=== PATIENT | female | born 1935 | race Caucasian/White ===

== ENCOUNTER 2024-12-25 14:46 | Emergency (ER) | payer MEDICARE, SELFPAY ==
[2024-12-25 14:54] VITALS: BP 128/58
[2024-12-25 15:42] LABS: % Basophils 0.6 % (0-2); % Eosinophils 2.7 % (0-6); % Immature Granulocytes 0.3 % (0-0.5); % Lymphocytes 19.1 % (20.5-51.1); % Monocytes 9.5 % (1.7-9.3); % Neutrophils 67.8 % (42.2-75.2); Absolute Basophils 0.1 10^3/uL (0-0.2); Absolute Eosinophils 0.2 10^3/uL (0-0.7); Absolute Lymphocytes 1.5 10^3/uL (1.2-3.4); Absolute Monocytes 0.7 10^3/uL (0.1-0.6); Absolute Neutrophils 5.2 10^3/uL (1.4-6.5); Hematocrit 38.7 % (37.0-47.0); Hemoglobin 12.5 g/dL (12.0-16.0); Mean Corp Hgb Conc. 32.3 g/dL (33.0-37.0); Mean Corpuscular Hgb 28.4 pg (27.0-31.0); Nucleated Red Blood Cells % 0 %; Platelet Count 237 10^3/uL (130-400); Red Cell Dist. Width 14.9 % (11.5-14.5); White Blood Cell Count 7.7 10^3/uL (4.8-10.8)
[2024-12-25 15:47] LABS: Urine Albumin Negative (Neg - Trace); Urine Bilirubin Negative (Negative); Urine Character Clear (Clear); Urine Color Yellow; Urine Glucose Negative (Negative); Urine Ketone Negative (Negative); Urine Leukocyte Negative (Negative); Urine Nitrite Negative (Negative); Urine Occult Blood Negative (Negative); Urine Urobilinogen Negative (Neg - 1+)
[2024-12-25 16:04] LABS: ALT (SGPT) 15 U/L (0-35); AST (SGOT) 24 U/L (14-36); Albumin 4.1 g/dl (3.5-5.0); Alkaline Phosphatase 101 U/L (38-126); Blood Urea Nitrogen 28 mg/dl (7-17); Calcium 9.6 mg/dl (8.4-10.2); Carbon Dioxide 27 mmol/L (22-30); Chloride 102 mmol/L (98-107); Glucose 150 mg/dl (70-99); Potassium 3.9 mmol/L (3.5-5.1); Sodium 138 mmol/L (135-145); Total Bilirubin 0.8 mg/dl (0.2-1.3); Total Protein 7.2 g/dl (6.3-8.2); eGFR > 60.00
[2024-12-25 16:15] LABS: Troponin I < 0.012 ng/ml
--- NOTE | 2024-12-25 16:37 | ED.GENMED ---
History of Present Illness
General
Chief Complaint: Urinary Symptoms
Source: patient and family
Exam Limitations: none
Time Seen by Provider: 12/25/24 16:36
History of Present Illness
History of Present Illness:
89yoF with a history of atrial fibrillation on Eliquis, CHF, hypertension, hyperlipidemia presenting with her daughter for evaluation of difficulty urinating. Symptoms began about a week ago. She is experiencing pain with urination as well as
incomplete voiding. She was started on a 5 day course of Macrobid. She took 7 doses without improvement and the physician at her nursing facility was planning to switch her antibiotics to Augmentin today. She was supposed to have an ultrasound
performed today but this was unable to be completed so she was sent to the ED for more expedited workup. Patient also complains of shortness of breath which has been intermittent with an associated dry cough. Her Bumex dose was increased recently
which has helped. No fevers, constipation, vomiting, chest pain.
Phy Exam
General Physical Exam
General Presentation: well appearing and no apparent distress
General Skin: warm and dry
General Habitus: normal
General Mental: alert
ENT Exam
ENT Exam: normocephalic
Cardiovascular Exam
Cardiovascular Exam: no edema and irregularly irregular
Pulmonary Exam
Pulmonary Exam: lungs clear, no respiratory distress, no rales, no crackles, no rhonchi and no wheezing
Gastrointestinal Exam
Gastrointestinal Exam: soft, non distended and other (+Suprapubic tenderness. Abdomen soft, non-distended. No rebound or guarding.)
Neurological Exam
Neurological Exam: alert
Silt Coma Scale
Eye Opening: Spontaneous
Verbal Response: Oriented
Motor Response: Obeys Commands
GCS Total Score: 15
Skin Exam
Skin Exam: normal color and warm/dry
Psychiatric Exam
Psychiatric Exam: normal mood/affect
Sepsis
Sepsis Screening
Sepsis Assessment: Sepsis Ruled Out
Sepsis Screen
Sepsis Screen: Sepsis Ruled Out
Date: 12/25/24
Time: 23:40
Course
Orders/Labs/Results
Orders:
Orders
12/25/24 15:01
ECG [Electrocardiogram (*1)] Urgent
Reason for Study: Palpitations
Other Reason for Exam: afib
EKG- Treatment ONCE
12/25/24 15:17
Complete Blood Count/With Diff Urgent
Comprehensive Metabolic Panel Urgent
Troponin I Urgent
Urinalysis Reflex To Culture Urgent
Date Specimen was Collected: 12/25/24
Time Specimen was Collected: 15:01
12/25/24 16:37
Bladder Scan- Treatment ONCE
12/25/24 16:58
CT Abd/pel Without Iv Or Oral Urgent
Comment:
Reason For Exam: lower abd pain, difficulty urinating
CR Chest - 2 Views Urgent
Comment:
Reason For Exam: SOB
12/25/24 19:00
Amoxicillin 875 mg/Clav 125 mg [Augmentin 875 mg/125 mg] 1 tablet PO NOW STA
Abnormal Lab Results
12/25/24
15:17
MCHC 32.3 L g/dL
(33.0-37.0)
RDW 14.9 H %
(11.5-14.5)
MPV 11.0 H fL
(7.4-10.4)
Absolute Monos (auto) 0.7 H 10^3/uL
(0.1-0.6)
Lymphocytes % 19.1 L %
(20.5-51.1)
Monocytes % 9.5 H %
(1.7-9.3)
BUN 28 H mg/dl
(7-17)
Glucose 150 H mg/dl
(70-99)
12/25/24 15:17
12/25/24 15:17
Vital Signs
Initial and Last Documented VS:
Initial Vital Signs
Temp Pulse Resp BP Pulse Ox
98.3 F 107 22 128/58 96
12/25/24 14:54 12/25/24 14:54 12/25/24 14:54 12/25/24 14:54 12/25/24 14:54
Last Documented Vital Signs
Temp Pulse Resp BP Pulse Ox
98.3 F 95 17 156/59 97
12/25/24 14:54 12/25/24 19:18 12/25/24 19:18 12/25/24 19:18 12/25/24 19:19
MDM/Problems Addressed
Differential Diagnosis Includes:
89yoF here with UTI symptoms x 1 week. On Macrobid without improvement. Also c/o dry cough and intermittent SOB. She is well appearing in no distress. No peripheral edema on exam and lungs CTA. Oxygen saturation 98% during exam. Differential
diagnosis includes but is not limited to: UTI, urinary retention, kidney stone, constipation, diverticulitis
Initial ED plan: Workup obtained in triage. EKG shows rate controlled afib without ischemic changes. Patient reports a history of permanent afib. Troponin WNL. UA is bland without signs of infection. White count normal. Will check CXR and CT abdomen
without contrast.
*EKG
Interpreted by ED Provider?: Yes
EKG Intrepretation Date: 12/25/24
Heart Rate: 88
Rate: normal
Rhythm: a-fib
[place]: normal axis
Interval: normal interval
QRS Pattern: normal QRS
Ischemia: no ischemia
*Critical Care Note
Total Time (30-74mins, 75-104mins- exclusive of procedures): Not Applicable
Update Note
Update Note:
Chest x-ray shows evidence of bronchitis. No pulmonary edema present. CT abdomen negative for acute findings. Bladder scan 0 cc. I was able to obtain urine culture results from her nursing facility. Urine culture from 12/18/2024 which grew out
>100,000 colonies of pansensitive E. coli. The provider at her nursing facility ordered Augmentin to start tomorrow which I think is reasonable given persistent symptoms. This should also cover for bronchitis. Patient stable for discharge back to
her nursing facility. Daughter and patient in agreement with plan.
ED Attending Note
-
Portions of this chart may have been created with voice recognition software.� Occasional wrong word or��sound alike� substitutions may have occurred due to the inherent limitations of voice recognition software.
Discharge Plan
Departure
Patient Disposition: Home (Routine Discharge)
Date of Disposition: 12/25/24
Time of Disposition: 19:00
Patient with high blood pressure during this ER visit?: Yes
Discharge Problem:
Urinary tract infection, Bronchitis
Instructions: Urinary Tract Infection, Adult (DC)
Prescriptions:
No Action
acetaminophen [Tylenol] 325 mg Tablet
650 mg PO DAILYPRN PRN (Reason: mild pain)
rabeprazole 20 mg Tablet,Delayed Release (Dr/Ec)
20 mg PO DAILY
Theragen Tablet
1 tab PO DAILY
potassium chloride 10 mEq Tablet Extended Release
10 meq PO DAILY
tramadol 50 mg Tablet
25 mg PO BIDPRN PRN (Reason: MODERATE PAINS)
bumetanide [Bumex] 1 mg Tablet
1 mg PO DAILY
nystatin 100,000 unit/gram Powder
1 applic TOPICAL BID
amoxicillin-pot clavulanate [Augmentin] 500-125 mg Tablet
1 tab PO BID
Rx Instructions:
for 7 days ending on 01/01/25
ezetimibe [Zetia] 10 mg Tablet
10 mg PO DAILY
nitrofurantoin monohyd/m-cryst [Macrobid] 100 mg Capsule
100 mg PO BID
Rx Instructions:
give until 12/27/24
nebivolol 5 mg Tablet
5 mg PO DAILY
L.acidoph,saliva-B.bif-S.therm [Acidophilus Probiotic Blend] 175 mg Capsule
1 cap PO DAILY
doxepin 3 mg Tablet
1.5 mg PO HS
Icy Hot Advanced Relief Patch 7.5 % Adhesive Patch,Medicated
1 patch TOPICAL DAILYPRN PRN (Reason: left shoulder/lower back)
Eliquis 5 mg Tablet
5 mg PO BID
d-mannose 500 mg Capsule
1,000 mg PO DAILY
Referrals:
Paige Tripp CRNP [Family Provider, General]
Activity Restrictions/Additional Instructions:
Switch antibiotics to Augmentin.
Please follow-up with your primary care provider. Return to the ER with any worsening symptoms including fevers.
Interventions
Interventions:
*Risk Screen - Suicide Last Done: 12/25/24 14:54
*General Assessment Last Done: 12/25/24 14:54
*Neglect/Abuse Screening Last Done: 12/25/24 14:54
*ED- Fall Risk Assessment Last Done: 12/25/24 16:59
*ED COVID-19 Vaccine History Last Done: 12/25/24 16:59
*Nursing Disposition Last Done: 12/25/24 19:21
ED-Female Genitourinary Assessment Last Done: 12/25/24 16:59
Discharge Date and Time
Discharge Date/Time: 12/25/24 19:22
Print Language: PALESTINIAN
[2024-12-25 16:59] VITALS: BMI 28.7
[2024-12-25 17:16] VITALS: BP 157/102
[2024-12-25 17:18] VITALS: BP 161/76
[2024-12-25] MEDS: AUGMENTIN 875 MG/125 MG 1 TABLET PO (19:16)
[2024-12-25 19:18] VITALS: BP 156/59
== END 2024-12-25 19:22 | disposition home or self-care (01) ==
LOC: EMR 14:46
PROVIDERS: Emergency Medicine; EMERGENCY PHYSICIAN Emergency Medicine; FAMILY PHYSICIAN Nurse Practitioner Gerontology
DX: N39.0 Urinary tract infection, site not specified (principal); J40 Bronchitis, not specified as acute or chronic; I11.0 Hypertensive heart disease with heart failure; I50.9 Heart failure, unspecified; E78.5 Hyperlipidemia, unspecified; I48.91 Unspecified atrial fibrillation; Z79.01 Long term (current) use of anticoagulants
CPT/HCPCS: 99285; 71046; 74176; 80053; 81003; 84484; 85025; 93005

== ENCOUNTER 2025-01-12 20:06 | Observation (INO) | payer MEDICARE, SELFPAY ==
[2025-01-12] VITALS (10 sets, daily range): BP systolic 105–145; BP diastolic 48–101; BMI 29.3; BMI 29.5
[2025-01-12 14:54] LABS: % Basophils 0.6 % (0-2); % Eosinophils 2.6 % (0-6); % Immature Granulocytes 0.3 % (0-0.5); % Lymphocytes 21.3 % (20.5-51.1); % Neutrophils 65.2 % (42.2-75.2); Absolute Eosinophils 0.2 10^3/uL (0-0.7); Absolute Lymphocytes 1.5 10^3/uL (1.2-3.4); Absolute Monocytes 0.7 10^3/uL (0.1-0.6); Absolute Neutrophils 4.7 10^3/uL (1.4-6.5); Hematocrit 39.9 % (37.0-47.0); Hemoglobin 13.1 g/dL (12.0-16.0); Mean Corp Hgb Conc. 32.8 g/dL (33.0-37.0); Mean Corpuscular Hgb 28.2 pg (27.0-31.0); Mean Platelet Volume 10.5 fL (7.4-10.4); Nucleated Red Blood Cells % 0 %; Platelet Count 199 10^3/uL (130-400); Red Blood Cell Count 4.64 10^6/uL (4.20-5.40); Red Cell Dist. Width 15.8 % (11.5-14.5); White Blood Cell Count 7.2 10^3/uL (4.8-10.8)
[2025-01-12 15:00] LABS: ALT (SGPT) 23 U/L (0-35); AST (SGOT) 37 U/L (14-36); Albumin 4.5 g/dl (3.5-5.0); Alkaline Phosphatase 94 U/L (38-126); Blood Urea Nitrogen 39 mg/dl (7-17); Calcium 9.9 mg/dl (8.4-10.2); Carbon Dioxide 29 mmol/L (22-30); Chloride 101 mmol/L (98-107); Glucose 107 mg/dl (70-99); Potassium 3.9 mmol/L (3.5-5.1); Sodium 138 mmol/L (135-145); Total Protein 7.8 g/dl (6.3-8.2); eGFR 48.03
[2025-01-12 15:09] LABS: NT-proBNP 2740 pg/ml
--- NOTE | 2025-01-12 17:15 | ED.GENMED ---
History of Present Illness
General
Chief Complaint: Heart Rate Problem
Time Seen by Provider: 01/12/25 17:15
History of Present Illness
History of Present Illness:
TIME OF INITIAL EVALUATION
- 5:15 PM
REVIEW OF OLD RECORDS
- Patient has a history of A-fib, CHF. She was seen in the emergency department diagnosed with bronchitis earlier this month. At that time chest x-ray was suggestive of bronchiectasis/bronchitis.
CHIEF COMPLAINT(S)
Anxiety and panic attacks.
HISTORY OF PRESENT ILLNESS
The patient is an 89-year-old female with a history of atrial fibrillation and congestive heart failure presenting with exacerbation of anxiety and panic attacks for the past 10 days. Prior to this period, anxiety was infrequent and manageable
without medication. The patient reports experiencing severe panic attacks that prevent her from sleeping. She states that her anxiety has been constant and is associated with sensations of being unable to breathe, although her oxygen saturation is
reportedly excellent at 90%. The patients heart rate is slightly elevated but not of major concern per recent evaluation.
She was here earlier this month with similar complaints, and it was thought to be related to a suspected but unconfirmed lung infection and bronchitis, which were responsive to treatment. Diagnostic imaging and lab work conducted previously showed
results compatible with her history of atrial fibrillation and congestive heart failure. The patient has used tramadol for neuropathy-related pain.
SOCIAL DETERMINANTS AFFECTING HEALTH
According to family, the patient seeks a rapid improvement in her condition and lacks understanding that anxiety medications may take weeks to show effects.
PHYSICAL EXAM
- General: Well appearing in no distress
- HEENT: Moist oral mucosa
- Cardiovascular: No murmurs, tachycardic heart rate, irregular rhythm, No chest wall tenderness
- Pulmonary: No respiratory distress, breath sounds are clear and equal
- Abdomen: Soft with no peritoneal signs, no tenderness
- Neurologic: Excellent strength all extremities, no coordination deficits
- Psychiatric: Appears very anxious and upset, crying at times
- Extremities: Nontender, no edema, moves all extremities equally
- Skin: No rash, no lesions
PLAN
The plan includes administering a benzodiazepine to address severe anxiety and break the cycle of panic attacks. Consultation with psychiatry will be considered for further management.
DIFFERENTIAL DIAGNOSIS
The Differential Diagnosis includes, in no particular order and is not limited to:
1. Generalized Anxiety Disorder
2. Panic Disorder
3. Medication Overuse/Withdrawal
4. Atrial Fibrillation with Rapid Ventricular Response
5. Congestive Heart Failure Exacerbation
6. Pulmonary Embolism
7. Chronic Obstructive Pulmonary Disease Exacerbation
8. Pneumonia
9. Hyperthyroidism
10. Electrolyte Imbalance
RADIOLOGY
-
EKG
- A-fib 106, left axis deviation
LABS
- CBC normal and unchanged from earlier this month, mild renal insufficiency noted, BNP 2740
UPDATE
-I sent this message to on-call psychiatry, Dr. Cartwright: 'H/o some anxiety in past, now markedly worse past 10d. Med list from [facility] (assisted living) indicates Buspar 5mg 1/2 pill bid started 01/05 (which she stopped taking due to ineffectiveness)
and Lexapro was started following day, but she cannot confirm she is taking this. These appear to have been started by PMD at [facility]. Will give a one time dose of benzo IV now due to severe anxiety / crying. Can't sleep.' And asked for any
further recommendations
-Karoline from crisis briefly evaluated the patient and feels that she has nothing more to offer
SUMMARY OF ENCOUNTER
The patient, an 89-year-old female, presented to the emergency department with exacerbation of anxiety and panic attacks, affecting her sleep. The patients mental health concerns are ongoing, and she reported that despite previous prescriptions of
medication like Buspirone (Buspar) and possibly others like Citalopram (Lexapro), there has been no significant improvement in her condition. The patient expressed reluctance to stay overnight unless there was a guaranteed solution for her anxiety.
Psychiatric consultation was considered, but immediate availability was uncertain. It was noted that the emergency department had a high patient load, impacting room availability and considerations for overnight observation.
DISPOSITION
The decision to potentially discharge the patient or keep her for overnight observation with administration of a dose of Buspirone was debated. Due to a lack of guaranteed psychiatric evaluation by the next day and the patients residence in an
assisted living facility, the decision leaned towards discharging the patient to her facility with her medication continued and follow-up considerations.
MEDICATION RECONCILIATION
Buspirone (Buspar) was discussed for administration in the ED to manage the patient�s anxiety symptoms. The patient was previously on this medication, and resumption of its use was considered.
PATIENT EDUCATION AND COUNSELING
The patient was counseled about the limitations and timelines of psychiatric medication efficacy, and the uncertainty of immediate improvement with medication restart was emphasized. The patient was also informed about the lack of immediate
psychiatric consultation and the possibility of continuing care at her assisted living facility.
PLAN
The plan included observing the patient overnight with administration of Buspirone to assess immediate improvement, with discharge being a viable option should she prefer returning to her assisted living facility.
MEDICAL DECISION MAKING
Chronic conditions affecting care include anxiety and panic disorder, as well as a history of atrial fibrillation and congestive heart failure. There was consideration of psychiatric medication efficacy and logistics�limited psychiatric support in
the ED due to patient volume and the nature of her assisted living arrangement.
MANAGEMENT OF THE PATIENTS CARE WAS DISCUSSED WITH
Brief interaction with psychiatry services was noted, though an immediate consult was unavailable. Discussions also included the emergency department team and potentially the patient�s assisted living staff regarding her ongoing care needs.
On reassessment after Ativan was given, she feels no improvement. She does not feel comfortable back to assisted living at this time as anxiety is still debilitating and she is still intermittently crying at times. Review of the monitor shows that
she is in A-fib with rapid response. Placed on Cardizem bolus and drip.
Phy Exam
Physical Exam
Physical Exam:
See HPI
Course
Orders/Labs/Results
Orders:
Orders
01/12/25 14:06
Electrocardiogram (*1) Urgent
Reason for Study: Tachycardia
EKG- Treatment ONCE
01/12/25 14:39
Complete Blood Count/With Diff Urgent
Comprehensive Metabolic Panel Urgent
Pro-BNP [NT-proBNP] Urgent
01/12/25 17:27
Lorazepam [Ativan] 0.5 mg IV NOW STA
01/12/25 18:30
Diltiazem 125 mg/125 ml Nss [Cardizem] 125 mg in 125 ml IV PER PROTOCOL
Initial dose in mg/hr, then titrate:: 5
Titrate to keep:: Heart rate 80-100 bpm
Titrate by mg/hr:: 5 mg/hr
Frequency of titrations (minutes):: 15
Maximum dose in mg/hr:: 15
01/12/25 19:07
Consult Psychiatry [PSYCHIATRY CONSULT] Urgent
Consulting Provider: Tram Cooper
Was physician already notified: Yes
01/12/25 19:15
Buspirone [Buspar] 5 mg PO NOW STA
Abnormal Lab Results
01/12/25
14:39
MCHC 32.8 L g/dL
(33.0-37.0)
RDW 15.8 H %
(11.5-14.5)
MPV 10.5 H fL
(7.4-10.4)
Absolute Monos (auto) 0.7 H 10^3/uL
(0.1-0.6)
Monocytes % 10.0 H %
(1.7-9.3)
BUN 39 H mg/dl
(7-17)
Creatinine 1.1 H mg/dL
(0.6-1.0)
Glucose 107 H mg/dl
(70-99)
AST 37 H U/L
(14-36)
01/12/25 14:39
01/12/25 14:39
Vital Signs
Initial and Last Documented VS:
Initial Vital Signs
Temp Pulse Resp BP Pulse Ox
36.4 C 129 22 145/80 97
01/12/25 14:28 01/12/25 14:28 01/12/25 14:28 01/12/25 14:28 01/12/25 14:28
Last Documented Vital Signs
Temp Pulse Resp BP Pulse Ox
36.4 C 112 7 129/75 99
01/12/25 14:28 01/12/25 17:15 01/12/25 17:15 01/12/25 17:11 01/12/25 17:17
*Pulse Oximetry
SaO2: 99
Oxygen Mode of Delivery: Room air
Patient hypoxic: no
*Critical Care Note
Total Time (30-74mins, 75-104mins- exclusive of procedures): Not Applicable
ED Attending Note
-
Portions of this chart may have been created with voice recognition software.� Occasional wrong word or��sound alike� substitutions may have occurred due to the inherent limitations of voice recognition software.
Discharge Plan
Departure
Prescriptions:
No Action
acetaminophen [Tylenol] 325 mg Tablet
650 mg PO DAILYPRN PRN (Reason: mild pain)
rabeprazole 20 mg Tablet,Delayed Release (Dr/Ec)
20 mg PO DAILY
Theragen Tablet
1 tab PO DAILY
potassium chloride 10 mEq Tablet Extended Release
10 meq PO DAILY
tramadol 50 mg Tablet
25 mg PO BIDPRN PRN (Reason: MODERATE PAINS)
bumetanide [Bumex] 1 mg Tablet
1 mg PO DAILY
nystatin 100,000 unit/gram Powder
1 applic TOPICAL BID
amoxicillin-pot clavulanate [Augmentin] 500-125 mg Tablet
1 tab PO BID
Rx Instructions:
for 7 days ending on 01/01/25
ezetimibe [Zetia] 10 mg Tablet
10 mg PO DAILY
nitrofurantoin monohyd/m-cryst [Macrobid] 100 mg Capsule
100 mg PO BID
Rx Instructions:
give until 12/27/24
nebivolol 5 mg Tablet
5 mg PO DAILY
L.acidoph,saliva-B.bif-S.therm [Acidophilus Probiotic Blend] 175 mg Capsule
1 cap PO DAILY
doxepin 3 mg Tablet
1.5 mg PO HS
Icy Hot Advanced Relief Patch 7.5 % Adhesive Patch,Medicated
1 patch TOPICAL DAILYPRN PRN (Reason: left shoulder/lower back)
Eliquis 5 mg Tablet
5 mg PO BID
d-mannose 500 mg Capsule
1,000 mg PO DAILY
Referrals:
Paige Tripp CRNP [Family Provider, General]
Interventions
Interventions:
*Risk Screen - Suicide Last Done: 01/12/25 14:28
*General Assessment Last Done: 01/12/25 14:28
*Neglect/Abuse Screening Last Done: 01/12/25 14:28
*ED- Fall Risk Assessment Last Done: 01/12/25 14:28
*ED COVID-19 Vaccine History Last Done: 01/12/25 14:28
ED- Cardiac Assessment Last Done: 01/12/25 17:23
ED- Pulmonary Assessment Last Done: 01/12/25 17:23
Discharge Date and Time
Print Language: GABONESE
[2025-01-12] MEDS: ATIVAN 0.5 MG IV (17:37)
--- NOTE | 2025-01-12 19:10 | HPS.HSE ---
Family Physician
-
Family Physician: ROSAMARIA Coleman
Chief Complaint
-
Palpitations and anxiety
History of Present Illness
89-year-old female with past medical history significant for congestive heart failure, paroxysmal atrial fibrillation on anticoagulation, hypertension, hyperlipidemia, presenting to the emergency department with worsening anxiety and palpitations.
Patient appears to have ongoing mental health issue of anxiety. She is on buspirone. Despite this she has worsening anxiety. She reports increasing severe panic attacks keeping her from sleeping. She also has a sensation of being unable to
breathe although oxygen saturation is excellent.
Patient's spouse was recently . She also recently moved from [place] to an assisted living in [place].
Since the move the patient has been having nightly panic episodes. She states that she feels short of breath and she could not sleep at home. She has leg shaking. She reports that she only had palpitations today not usually. But she reports
intermittent lightheadedness frequently.
She kept saying that she could not ' live like this anymore' in relation to her panic episodes. Patient denies prior history of CVA panic episode or depression and stated that she is occasionally an anxiety in the past that resolved.
In the emergency department blood pressure was low 129/75 she was afebrile, she was tachycardic to the 120s.
CBC was unremarkable, ECG shows atrial fibrillation with RVR at a rate of 129, BNP was 2700. Electrolytes were normal. BUN/creatinine were slightly increased from prior at 39 and 1.1.
Medical History
Past Medical History
Past Medical History: Reports Arrhythmia (Atrial fibrillation), CHF, GERD and HTN
Past Surgical History: Reports Other
Social History
Tobacco: Non-smoker
Alcohol: None
Drug: None
Family History
Family History: Not pertinent
Allergies / Home Medications
Allergies reflects when Allergies were last updated in [facility].
Home Medications with original date entered in [facility]
Allergy/Medication List:
Allergies
Allergy/AdvReac Type Severity Reaction Status Date / Time
Iodinated Contrast Media Allergy Intermediate Hives Verified 01/12/25 14:27
Sulfa (Sulfonamide Allergy Mild Hives Verified 01/12/25 14:27
Antibiotics)
sulfamethoxazole (From Allergy Mild Hives Verified 01/12/25 14:27
Bactrim)
trimethoprim (From Bactrim) Allergy Mild Hives Verified 01/12/25 14:27
phenazopyridine (From Allergy Unknown Verified 01/12/25 14:27
Pyridium)
Home Medications
L.acidophil,salivari-Bifido bifidum-Strep thermoph 175 mg capsule (Acidophilus Probiotic Blend) 1 cap PO DAILY 12/25/24
acetaminophen 325 mg tablet (Tylenol) 650 mg PO DAILYPRN PRN mild pain 12/25/24
amoxicillin 500 mg-potassium clavulanate 125 mg tablet (Augmentin) 1 tab PO BID 12/25/24
apixaban 5 mg tablet (Eliquis) 5 mg PO BID 12/25/24
bumetanide 1 mg tablet 1 mg PO DAILY 12/25/24
d-mannose 500 mg capsule 1,000 mg PO DAILY 12/25/24
doxepin 3 mg tablet 1.5 mg PO HS 12/25/24
ezetimibe 10 mg tablet (Zetia) 10 mg PO DAILY 12/25/24
menthol 7.5 % topical patch 1 patch topical DAILYPRN PRN left shoulder/lower back 12/25/24
nebivolol 5 mg tablet 5 mg PO DAILY 12/25/24
nitrofurantoin monohydrate/macrocrystals 100 mg capsule (Macrobid) 100 mg PO BID 12/25/24
nystatin 100,000 unit/gram topical powder 1 applic topical BID under b/l breast 12/25/24
potassium chloride 10 mEq tablet,extended release 10 meq PO DAILY 12/25/24
rabeprazole 20 mg tablet,delayed release 20 mg PO DAILY 12/25/24
therapeutic multivitamin 1 tab PO DAILY 12/25/24
tramadol 50 mg tablet 25 mg PO BIDPRN PRN MODERATE PAINS 12/25/24
Review of Systems
-
History Source: Patient and Family
Constitutional: Reports No Symptoms
EENT: Reports No Symptoms
Respiratory: Reports No Symptoms
Cardiac: Reports Palpitations
Abdomen/GI: Reports No Symptoms
: Reports No Symptoms
Musculoskeletal: Reports No Symptoms
Skin: Reports No Symptoms
Neurological: Reports No Symptoms
Endocrine: Reports No Symptoms
Hematologic/Lymphatic: Reports No Symptoms
Psych: Reports Anxiety
Physical Exam
Vital Signs
Vital Signs
Temp Pulse Resp BP Pulse Ox
97.5 F 112 7 129/75 99
01/12/25 14:28 01/12/25 17:15 01/12/25 17:15 01/12/25 17:11 01/12/25 17:17
Physical Exam
General: Well Developed, Well Nourished and No Apparent Distress
HEENT: NormoCephalic, Moist mucous membranes and Atraumatic
Respiratory: Clear
Cardiac: S1/S2, Irregular Rhythm and Tachycardia; No Murmur or Rub
GI: Soft, Non Tender, Non Distended and Normal Bowel Sounds; No Organomegaly
Rectal: Deferred by Provider
Musculoskeletal: No Clubbing, No Cyanosis, Edema, Left Lower Extremity (Trace) and Edema, Right Lower Extremity (Trace)
Skin: No Rash
Neuro: Nonfocal/grossly intact
Laboratory Results
-
01/12/25 14:39
01/12/25 14:39
Laboratory Results
Total Bilirubin 1.0 mg/dl (0.2-1.3) 01/12/25 14:39
AST 37 U/L (14-36) H 01/12/25 14:39
ALT 23 U/L (0-35) 01/12/25 14:39
Alkaline Phosphatase 94 U/L (38-126) 01/12/25 14:39
Data Reviewed
-
Medical Tests (Nuc Med, Echo, EKG etc): Image Personally Visualized and interpreted
Lab Data: Labs Reviewed by me
Old Records: Reviewed
Impression/Plan
-
IMPRESSION:
This is a generally well-appearing 89-year-old with past medical history of atrial fibrillation on anticoagulation, hypertension, GERD and recent diagnosis of anxiety who presents to the emergency department with anxiety and palpitations and was
found to be in rapid atrial fibrillation. Patient is generally seeking help for anxiety and feels that she can return home without assurance of improvement in symptoms she states she could not tolerate and other nights with or panic episodes. She
has been given lorazepam in the emergency department and said that this made felt 'loopy'. She is getting oral buspirone 5mg now. On diltiazem
PLAN:
1. Atrial fibrillation -patient in rapid afebrile with a rate of 120s on arrival, now around 100 on diltiazem drip
- Admit to telemetry
- Continue diltiazem drip at a fixed rate titrate up physician
- Continue patient's Eliquis 5 mg twice daily
� Continue the Nebivolol
-Keep K and mag greater than 4 2 respectively
� Known A-fib this is not new so no indication for repeat echo at this time
� Patient has not established with cardiology here in [place] but has 1 from [place]. No indication for elevated cardiology consult at this time as patient's known A-fib
-Check TSH
- Continue Bumex 1 mg daily
2 -severe panic episode/anxiety generalized anxiety disorder
-Continue BuSpar 5 mg twice daily
-Continue escitalopram 5 mg daily
-Psych has been consulted in the ED
DVT PPX - on apixaban
Code Status - DNR
[2025-01-12] MEDS: CARDIZEM 125 IV (19:17)
--- NOTE | 2025-01-12 19:21 | EDRN ---
Report received, introduced myself to patient, myself and previous nurse helped patient on to bedside commode and the provider back in to speak with the son about admission, Admitting doctor at bedside now working on admission.
[2025-01-12] MEDS: BUSPAR 5 MG PO (20:09)
--- NOTE | 2025-01-12 20:17 | EDRN ---
Joe placed and patient asking for food provided with a turkey sandwich
[2025-01-12] MEDS: ELIQUIS 5 MG PO (22:21)
[2025-01-12] MEDS: ATIVAN 0.5 MG PO (22:21)
[2025-01-12] MEDS: DESENEX/MITRAZOL/ZEASORB 1 APPLIC TOPICAL (22:22)
[2025-01-13] VITALS (8 sets, daily range): BP systolic 112–135; BP diastolic 43–72; PULSE 76–78; O2SAT 97; BMI 29.5
[2025-01-13] MEDS: ULTRAM 25 MG PO ×3 (03:49→21:36)
[2025-01-13 06:15] LABS: Blood Urea Nitrogen 31 mg/dl (7-17); Calcium 9.4 mg/dl (8.4-10.2); Carbon Dioxide 26 mmol/L (22-30); Chloride 105 mmol/L (98-107); Estimated Creatinine Clearance 33 ml/min; Glucose 92 mg/dl (70-99); HDL Cholesterol 41 mg/dl; LDL Cholesterol, Calculated 83 mg/dl; Magnesium 2.1 mg/dl (1.6-2.3); Potassium 3.3 mmol/L (3.5-5.1); Sodium 141 mmol/L (135-145); Total Cholesterol 136 mg/dl (50-199); Triglyceride 63 mg/dl (10-149); Very Low Density Lipoprotein 12 mg/dl (0-30); eGFR 53.85
[2025-01-13 06:43] LABS: TSH 2.51 uIU/ml (0.47-4.68)
--- NOTE | 2025-01-13 07:24 | PTCARENOTE ---
Patient arrived on unit @2119 via stretcher from ED, pulled over to bed with assist x3. Patient AAOx3, anxious and tearful, able to make needs known. Skin assessment completed, med rec completed, oriented to unit, call mccann in reach. Patient arrived
on unit with cardizem gtt running @5mg/hr. Prn ativan given as ordered for anxiety.
BAND BIAS MACHINE OPERATOR made aware @0526 patient is still in Afib but HR dropped to 40s more than once but did not sustain. Patient is asymptomatic and HR on tele monitor running between 60s to 90s. New order received for cardizem gtt rate 2.5mg/hr.
BAND BIAS MACHINE OPERATOR made aware @0645 patient's HR is still occasionally going into the 40s with pauses, asymptomatic. BAND BIAS MACHINE OPERATOR order to hold cardizem gtt. Cardizem gtt placed on hold as ordered.
[2025-01-13] MEDS: BYSTOLIC 5 MG PO (08:53)
[2025-01-13] MEDS: ELIQUIS 5 MG PO ×2 (08:54→20:06)
[2025-01-13] MEDS: BUMEX 1 MG PO (08:54)
[2025-01-13] MEDS: PROTONIX 40 MG PO (08:54)
[2025-01-13] MEDS: KCL 10 MEQ PO (08:55)
[2025-01-13] MEDS: ZETIA 10 MG PO (08:55)
[2025-01-13] MEDS: ATIVAN 0.5 MG PO ×2 (09:09→16:49)
[2025-01-13] MEDS: DESENEX/MITRAZOL/ZEASORB 1 APPLIC TOPICAL ×2 (09:20→20:06)
--- NOTE | 2025-01-13 10:57 | W.PN.HOSP.TC ---
Today's Communication/Plan
-
Replete potassium
Psychiatry consult
PT/OT
Possible discharge
Assessment / Plan
Assessment / Plan
Gen-AAOx3, NAD, flat affect
HEENT-NC, AT, anicteric, clear oral mm
Neck-supple
CV-reg, no M, +S1/S2
Lungs-clear B/L
Abd-soft, NT, ND
Ext-no edema
Musculoskeletal-no cyanosis, clubbing
Skin-warm and dry
Neuro-grossly non-focal
Psych-calm, cooperative
Rapid atrial fibrillation -improved. Denies further palpitations. Continue beta-raymundo, Eliquis. Off Cardizem drip.
TSH normal.
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 She moved to [place] 6 weeks ago.
Depression/anxiety disorder -this is the primary reason for her admission. Consult psychiatry. Outpatient psychiatry follow-up.
She lost her 3 months ago.
Hypokalemia -replete orally. Magnesium was normal.
Ambulatory dysfunction -uses a walker at baseline. Consult PT/OT.
Obesity due to excess calories
DNR
Dispo -potential discharge back to [facility] later today if stable. Discussed with nursing and psychiatry.
Anticipated Discharge: Today
Subjective/Interval History
-
Date of Service: January 13, 2025
Patient seen and examined. Complaining of back pain due to poor sleep.
Objective Data
-
Labs:
Laboratory Results
01/13/25
05:23
Sodium 141
Potassium 3.3 L
Chloride 105
Carbon Dioxide 26
BUN 31 H
Creatinine 1.0
Glucose 92
Calcium 9.4
Vital Signs:
Vital Signs
Temp Pulse Resp BP Pulse Ox
98.1 F 81 16 130/43 96
01/13/25 07:30 01/13/25 08:53 01/13/25 07:30 01/13/25 08:53 01/13/25 07:30
I&O
01/12/25 01/13/25 01/14/25
06:59 06:59 06:59
Intake Total 120 / 120
Output Total 100 / 100
Balance
Review of Systems
-
History Source: Patient
All other systems: Reviewed and negative
--- NOTE | 2025-01-13 11:16 | CON.MD ---
Consultation - Medical
-
patient seen chart reviewed. this consult was done today january 13 2025. the patient is an 89 year old woman admitted for anxiety and panic of ten days duration. while the record says this is a recent phenomenon she told me she has struggled since
her h of 68 years in september and she had to sell her home and move into [place]. she admits she is also depressed but the anxiety is overwhelming and those meds that 'take two weeks to work' have not helped her. she took buspar admittedly a
very small dose 2.5 mg bid but is convinced it was not helpful. also took lexapro 5 mg daily. she cannot sleep .says no sleep in the past few days. appetite is poor states ten lb weight loss. she does not enjoy anything. she is not suicidal. no
psychotic sx noted. patient's oxygenation is good . she has intermittently had high heart rate in the 120's and a fib w rvr has been noted
past psych hx prior to this recent episode never rx for psych has had moments of anx and dep in her life but coped
medical hx a fib chf hx uti hx pe copd gerd htn hx pneumonia chronic pain hyperthryoid noted in chart
fh denied
substance abuse denied
social resides at [facility] recently three kids five grands and four greats
mse alert ox3 cooperative appearance is frail and depressed affect constricted denies si no psychosis aver intell insight judgment ok
dx unspecified depression unspec anxiety
plan patient does appear to be depressed as well as anxious. it is also possible that afib even thought rate is below 100 right now is contributing. would use ativan standing for a week or more as antidep takes effect. discussed with patient side
effects risks vs collette of bzp which have falls sedation mentation as possible adverse effect. also remeron 7.5 mg q hs which should help w depression dec appetite sleep anxiety etc. need to inc to 15 in a week or so if no ill effects. check b12
folate vit d and tsh reflex to t4 offer support. psych to follow
[2025-01-13] MEDS: KCL 40 MEQ PO (11:26)
[2025-01-13] MEDS: REMERON 7.5 MG PO (21:24)
[2025-01-14] MEDS: ATIVAN 0.5 MG PO ×2 (03:58→08:30)
[2025-01-14 07:30] VITALS: BP 151/85
--- NOTE | 2025-01-14 07:49 | VATNOTE ---
Pt's PIV site appears to have some blood underneath. Pt currently sleeping. Will return to change PIV dressing.
[2025-01-14] MEDS: BUMEX 1 MG PO (08:24)
[2025-01-14] MEDS: BYSTOLIC 5 MG PO (08:24)
[2025-01-14] MEDS: ELIQUIS 5 MG PO ×2 (08:25→20:54)
[2025-01-14] MEDS: PROTONIX 40 MG PO (08:25)
[2025-01-14] MEDS: ZETIA 10 MG PO (08:25)
[2025-01-14] MEDS: KCL 10 MEQ PO (08:25)
[2025-01-14] MEDS: ULTRAM 25 MG PO ×2 (08:31→21:02)
[2025-01-14] MEDS: DESENEX/MITRAZOL/ZEASORB 1 APPLIC TOPICAL ×2 (08:43→20:57)
--- NOTE | 2025-01-14 08:53 | CM ---
Addendum entered by Gabbie Jay 01/14/25 16:25:
Pt does not qualify for the [facility] waiver. Therapy recommending SNF, however due to OBS status, pt does not qualify for SNF. [facility] spoke with Anne-Marie Garcia who advised that April lives at [place], not the independent living at [facility]. CM
contacted Emiliana Herculesunt at [place] and sent records for review.
Plan: F/U in am to determine if pt's needs can be met at [place].
Original Note:
Recently moved to [facility]. At times pt receives assistance with meals and ADLs. SNF recommended by PT/OT; currently OBS status and min (A) for transfers and ambulation with RW. TT to [facility] to determine if pt qualifies for the [facility] waiver.
--- NOTE | 2025-01-14 11:08 | W.PN.UPDATE ---
Update Note
Progress Note Update
patient seen chart reviewed. discussed with nursing. mrs mcclain appeared very tired today. she had received a prn of ativan in the night and this am. she is very anxious despite clearly being tired. she did not sleep well last night. she is
trying to keep busy doing soduku and word searches. i suggested that if she were tired she could certainly take a nap . reiterated to her that antidepressants take some time to work and though we use ativan as a temporizing measure it can be
sedating. have decreased ativan to o.25 mg considered inc in hs remeron but only just started it and it too can cause am sedation. will follow
[2025-01-14 11:45] VITALS: BP 142/75
[2025-01-14 12:44] LABS: Blood Urea Nitrogen 26 mg/dl (7-17); Calcium 9.6 mg/dl (8.4-10.2); Carbon Dioxide 30 mmol/L (22-30); Chloride 104 mmol/L (98-107); Estimated Creatinine Clearance 33 ml/min; Glucose 129 mg/dl (70-99); Potassium 3.7 mmol/L (3.5-5.1); Sodium 140 mmol/L (135-145); eGFR 53.85
--- NOTE | 2025-01-14 13:44 | W.PN.HOSP.TC ---
Today's Communication/Plan
-
Increase KCl dose
Discharge planning
Assessment / Plan
Assessment / Plan
Gen-AAOx3, NAD, flat affect
HEENT-NC, AT, anicteric, clear oral mm
Neck-supple
CV-reg, no M, +S1/S2
Lungs-clear B/L
Abd-soft, NT, ND
Ext-no edema
Musculoskeletal-no cyanosis, clubbing
Skin-warm and dry
Neuro-grossly non-focal
Psych-calm, cooperative
Rapid atrial fibrillation -improved. Denies further palpitations. Continue Nebivolol, Eliquis.
TSH normal.
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 She moved to [place] 6 weeks ago.
Depression/anxiety disorder -this is the primary reason for her admission. Psychiatry service following. Continue Remeron and lorazepam per psychiatry. Outpatient psychiatry follow-up.
She lost her 3 months ago.
Hypokalemia -improved. Will increase standing dose of potassium to 20meq daily.
Ambulatory dysfunction -uses a walker at baseline. Continue PT/OT.
Obesity due to excess calories
DNR
Dispo -stable for discharge to SNF. She resides in [facility] independent living. Updated case management.
Anticipated Discharge: Within 24 hours
Subjective/Interval History
-
Date of Service: January 14, 2025
Patient seen and examined, sleeping when I walked in. When awakened she appears very depressed and states she does not feel well but cannot expand on that.
Objective Data
-
Labs:
Laboratory Results
01/14/25
12:11
Sodium 140
Potassium 3.7
Chloride 104
Carbon Dioxide 30
BUN 26 H
Creatinine 1.0
Glucose 129 H
Calcium 9.6
Vital Signs:
Vital Signs
Temp Pulse Resp BP Pulse Ox
97.8 F 99 18 142/75 97
01/14/25 11:45 01/14/25 11:45 01/14/25 11:45 01/14/25 11:45 01/14/25 11:45
I&O
01/13/25 01/14/25 01/15/25
06:59 06:59 06:59
Intake Total 120 / 120 880 / 880
Output Total 100 / 100
Balance 880 / 880
Review of Systems
-
History Source: Patient
All other systems: Reviewed and negative
[2025-01-14 14:15] LABS: Vitamin D, 25-OH*** 64.4 ng/mL (30-80)
[2025-01-14] MEDS: KCL 20 MEQ PO (14:15)
[2025-01-14 14:28] LABS: TSH Reflex To Free T4 2.36 uIU/ml (0.47-4.68)
[2025-01-14 15:04] LABS: Folate > 20.0 ng/ml (2.76-20); Vitamin B12 889 pg/ml (239-931)
[2025-01-14 15:45] VITALS: BP 133/58
[2025-01-14] MEDS: ATIVAN 0.25 MG PO ×2 (16:11→23:24)
[2025-01-14 19:17] VITALS: BP 140/60
[2025-01-14] MEDS: REMERON 7.5 MG PO (20:54)
[2025-01-14 23:46] VITALS: BP 140/60
[2025-01-15 07:25] VITALS: BP 133/65
[2025-01-15] MEDS: ZETIA 10 MG PO (07:55)
[2025-01-15] MEDS: KCL 20 MEQ PO (07:55)
[2025-01-15] MEDS: ELIQUIS 5 MG PO (07:55)
[2025-01-15] MEDS: ATIVAN 0.25 MG PO ×2 (07:55→15:51)
[2025-01-15] MEDS: PROTONIX 40 MG PO (07:55)
[2025-01-15] MEDS: BUMEX 1 MG PO (07:55)
[2025-01-15] MEDS: BYSTOLIC 5 MG PO (07:56)
[2025-01-15] MEDS: DESENEX/MITRAZOL/ZEASORB 1 APPLIC TOPICAL (07:56)
[2025-01-15 10:58] VITALS: BMI 29.2
--- NOTE | 2025-01-15 11:15 | W.PN.UPDATE ---
Update Note
Progress Note Update
patient seen chart reviewed. spoke with nursing. patient remains very depressed and anxious. when you ask her what she is anxious about she speaks of her 's and the changes she has been forced to make in her life. eg moving to [place]. she admits [facility] has ' a lot of amenities' but she mourns her own life. she also acknowledges that her kids try to help but.....would continue w meds as they are it is still too soon for full effect of remeron and she is on a small dose
which increased to day to 15 mg. b12 folate vit d tsh all ok will follow.
[2025-01-15 11:25] VITALS: BP 121/60
--- NOTE | 2025-01-15 12:20 | W.PN.HOSP.TC ---
Today's Communication/Plan
-
Discharge planning
Assessment / Plan
Assessment / Plan
Gen-AAOx3, NAD, flat affect
HEENT-NC, AT, anicteric, clear oral mm
Neck-supple
CV-reg, no M, +S1/S2
Lungs-clear B/L
Abd-soft, NT, ND
Ext-no edema
Musculoskeletal-no cyanosis, clubbing
Skin-warm and dry
Neuro-grossly non-focal
Psych-calm, cooperative
Rapid atrial fibrillation -improved. Denies further palpitations. Continue Nebivolol, Eliquis.
TSH normal.
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 She moved to [place] 6 weeks ago.
Depression/anxiety disorder -this is the primary reason for her admission. Psychiatry service following. Continue Remeron and lorazepam per psychiatry. Outpatient psychiatry follow-up.
She lost her 3 months ago.
Remeron dose increased.
Hypokalemia -improved. Will increase standing dose of potassium to 20meq daily.
Ambulatory dysfunction -uses a walker at baseline. Continue PT/OT.
Obesity due to excess calories
DNR
Dispo -stable for discharge to SNF. She resides in [facility] independent living. Updated case management.
Anticipated Discharge: Today
Subjective/Interval History
-
Date of Service: January 15, 2025
Patient seen and examined. Complaining of fatigue, insomnia, back pain.
Objective Data
-
Vital Signs:
Vital Signs
Temp Pulse Resp BP Pulse Ox
97.6 F 92 14 121/60 99
01/15/25 11:25 01/15/25 11:25 01/15/25 11:25 01/15/25 11:25 01/15/25 11:25
I&O
01/14/25 01/15/25 01/16/25
06:59 06:59 06:59
Intake Total 880 / 880 1100 / 1100
Balance 880 / 880 1100 / 1100
Review of Systems
-
History Source: Patient
All other systems: Reviewed and negative
[2025-01-15 13:29] VITALS: BP 125/51; PULSE 87; O2SAT 98
--- NOTE | 2025-01-15 13:56 | W.DS.TRANS ---
DC Summary - Product Marketing Intern
-
Discharge Instructions:
Sleep Apnea Risk Intermediate
Discharge Diagnosis/Procedures Anxiety disorder, depression, atrial
fibrillation
Diet Low Cholesterol,Low Fat
Activity As tolerated
Driving Restrictions As prior to admission
Bathing Restrictions None
Blood Work BMP next week
Instructions:
Stand-Alone Forms:
Changes to Home Medications: No
Discharge Medications:
DC Medications w/original date entered in [facility]
L.acidophil,salivari-Bifido bifidum-Strep thermoph 175 mg capsule (Acidophilus Probiotic Blend) 1 cap PO DAILY Supplement 12/25/24
acetaminophen 325 mg tablet (Tylenol) 325 mg PO BIDPRN PRN mild pain 12/25/24
apixaban 5 mg tablet (Eliquis) 5 mg PO BID Blood Clot Prevention/Tx 12/25/24
bumetanide 1 mg tablet 1 mg PO DAILY Fluid Retention/Swelling 12/25/24
ezetimibe 10 mg tablet (Zetia) 10 mg PO DAILY High Cholesterol 12/25/24
nebivolol 5 mg tablet 5 mg PO DAILY Blood Pressure 12/25/24
nystatin 100,000 unit/gram topical powder 1 applic topical BID under b/l under breasts 12/25/24
rabeprazole 20 mg tablet,delayed release 20 mg PO DAILY gerd 12/25/24
tramadol 50 mg tablet 25 mg PO BIDPRN PRN MODERATE PAINS 12/25/24
multivitamin 1 tab PO DAILY Supplement 01/12/25
potassium chloride 10 mEq capsule,extended release 10 meq PO DAILY Supplement 01/12/25
lorazepam 0.5 mg tablet 0.25 mg (1/2 x 0.5 mg) PO BID@0800,1600 #30 tabs 01/15/25
lorazepam 0.5 mg tablet 0.25 mg (1/2 x 0.5 mg) PO Q8HPRN PRN anxiety #30 tabs 01/15/25
mirtazapine 15 mg tablet 15 mg PO HS #30 tabs 01/15/25
potassium chloride 20 mEq tablet,extended release(part/cryst) 20 meq PO DAILY #30 tabs 01/15/25
Home Medication Changes
Pending Results: No
--- NOTE | 2025-01-15 14:04 | CM ---
CM spoke with Emiliana Rossi at [facility] this afternoon; They are working with family to determine best care for patient. Possible transfer to SNF if [facility] determines that they cannot provide all needed care/assistance due to pt's current
functional status.
VM left for pt's son, Megan Pacheco; await response.
[2025-01-15 15:20] VITALS: BP 109/56
--- NOTE | 2025-01-15 15:50 | CM ---
CM spoke with Anne-Marie Garcia at [facility]. Pt has been accepted for transfer to [facility] today.
CM spoke with pt's daughter, Kim and exchanged voicemails with pt's son Megan; was unable to reach him directly. Ambulance transport requested.
Plan: Family agreeable to short term admission to [facility] with private pay, then return to [facility].
[facility] report: [phone]
[facility]
[2025-01-15 20:02] VITALS: BP 138/72
== END 2025-01-15 20:56 ==
LOC: 3 WEST ACU 20:06
PROVIDERS: ADMITTING PHYSICIAN Internal Medicine; ATTENDING PHYSICIAN Hospitalist; EMERGENCY PHYSICIAN Emergency Medicine; FAMILY PHYSICIAN Nurse Practitioner Gerontology; OTHER PHYSICIAN Psychiatry & Neurology Psychiatry
DX: F41.8 Other specified anxiety disorders (principal); I48.0 Paroxysmal atrial fibrillation; I11.0 Hypertensive heart disease with heart failure; E78.5 Hyperlipidemia, unspecified; E87.6 Hypokalemia; I50.9 Heart failure, unspecified; K21.9 Gastro-esophageal reflux disease without esophagitis; F41.1 Generalized anxiety disorder; E66.09 Other obesity due to excess calories; R26.2 Difficulty in walking, not elsewhere classified; G62.9 Polyneuropathy, unspecified; Z66 Do not resuscitate; Z68.29 Body mass index [BMI] 29.0-29.9, adult; Z79.01 Long term (current) use of anticoagulants; Z79.899 Other long term (current) drug therapy
CPT/HCPCS: 80048; 80053; 80061; 82306; 82607; 82746; 83735; 83880; 84443; 85025; 87070; 93005; 96374; 96375; 97116; 97163; 97167; 97530; 97535; 99285; G0378

== ENCOUNTER → 2025-01-18 11:03 | Outpatient (REF) | payer OTHER, MEDICARE, SELFPAY ==
[2025-01-18 12:21] LABS: Hematocrit 40.2 % (37.0-47.0); Mean Corp Hgb Conc. 32.3 g/dL (33.0-37.0); Mean Corpuscular Hgb 28.8 pg (27.0-31.0); Mean Corpuscular Volume 88.9 fL (81.0-99.0); Platelet Count 199 10^3/uL (130-400); Red Blood Cell Count 4.52 10^6/uL (4.20-5.40); White Blood Cell Count 6.5 10^3/uL (4.8-10.8)
[2025-01-18 13:55] LABS: Blood Urea Nitrogen 38 mg/dl (7-17); Calcium 10.1 mg/dl (8.4-10.2); Carbon Dioxide 26 mmol/L (22-30); Chloride 104 mmol/L (98-107); Glucose 115 mg/dl (70-99); Potassium 4.2 mmol/L (3.5-5.1); Sodium 140 mmol/L (135-145); eGFR 43.27
== END ==
LOC: OLABP 11:03
PROVIDERS: ATTENDING PHYSICIAN Family Medicine
DX: I10 Essential (primary) hypertension (principal); I48.91 Unspecified atrial fibrillation; I50.9 Heart failure, unspecified; E78.5 Hyperlipidemia, unspecified; F41.9 Anxiety disorder, unspecified; F32.9 Major depressive disorder, single episode, unspecified
CPT/HCPCS: 36415; 80048; 85027